=== PATIENT | male | born 1990 | race Asian ===

== ENCOUNTER 2025-01-20 21:50 | Emergency (ER) | payer MEDICAID ==
[~2025-01-20] VITALS: Ht 180.3 cm; Wt 78.9 kg
[2025-01-20] MEDS ORDERED: LORazepam 2 MG/ML VIAL ONE (22:19)
[2025-01-20 22:26] VITALS: TEMP 97.5
[2025-01-21 05:17] VITALS: BP 110/65; PULSE 74; RESP 14; O2SAT 97
== END 2025-01-21 05:53 | disposition home or self-care (01) ==
LOC: EMS 22:03
DX: F32.9 Major depressive disorder, single episode, unspecified (principal); R45.851 Suicidal ideations
CPT/HCPCS: 99285; J1200; J1630; J2060